=== PATIENT | male | born 1990 | race Two or more races ===

== ENCOUNTER 2023-02-07 09:51 | Emergency (ER) | payer SELFPAY ==
[2023-02-07 09:58] VITALS: BP 122/90; PULSE 80; RESP 18; TEMP 36.9; O2SAT 100; BMI 20.3
--- NOTE | 2023-02-07 10:16 | ED_ITS ---
HPI - Skin/Abscess/Foreign Bdy General Chief complaint: Skin/Abscess/Foreign Body Stated complaint: RASH Time Seen by Provider: 02/07/23 10:16 Source: patient Mode of arrival: walk-in History of Present Illness HPI narrative: patient's here with a skin rash in his groin area. He was here several weeks ago with similar problems. He was not checked for diabetes at the time but has no history of diabetes. He is nystatin cream and the rash went completely away but then it came back when he ran out of the ointment. He is otherwise healthy. 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 He does not have a skin lesions anyplace except in his groin. Related Data Allergies Allergy/AdvReac Type Severity Reaction Status Date / Time No Known Drug Allergies Allergy Verified 02/07/23 09:57 PFSH PFS Social History Smoking status: Current every day smoker Exam Narrative Exam Narrative: pleasant no apparent distress vital signs are stable we will do a bedside glucose. Problem focused examination to his skin shows no skin lesions to his trunk torso or upper extremities or cranial facial area. Examining the area in his groin there is classic erythematous scaling dry ride fungal type infection with no evidence of cellulitis abscesses or complications. His examination is normal. Constitutional Vital Signs - 24 hr 02/07/23 09:58 Temperature 98.5 F Pulse Rate [Monitor] 80 Respiratory Rate 18 Blood Pressure [Left Arm] 122/90 H Pulse Oximetry 100 Oxygen Delivery Method Room Air Course Vital Signs Vital signs: Vital Signs Temperature 98.5 F 02/07/23 09:58 Pulse Rate 80 02/07/23 09:58 Respiratory Rate 18 02/07/23 09:58 Blood Pressure 122/90 H 02/07/23 09:58 Pulse Oximetry 100 02/07/23 09:58 Oxygen Delivery Method Room Air 02/07/23 09:58 Temperature 98.5 F 02/07/23 09:58 Pulse Rate 80 02/07/23 09:58 Respiratory Rate 18 02/07/23 09:58 Blood Pressure 122/90 H 02/07/23 09:58 Pulse Oximetry 100 02/07/23 09:58 Oxygen Delivery Method Room Air 02/07/23 09:58 MDM - Skin/Abscess/Foreign Bdy MDM Narrative Medical decision making narrative: patient's findings are consistent with a fungal infection and a high moist area. 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 We did check his sugar and it was 115. We'll give him a prescription for nystatin Discharge Plan Discharge Chief Complaint: Skin/Abscess/Foreign Body Clinical Impression: Tinea corporis Time of Disposition Decision: 10:24 Instructions: Dermatitis (ED) Additional Instructions: nystatin Stand Alone Forms: Portal Instructions Referrals: Physician,Non-Staff, MD [Primary Care Provider] - 1 week
--- NOTE | 2023-02-07 10:24 | PC.NURSE ---
accuchro completed 115
[2023-02-07 10:25] LABS: Glucometer 115 mg/dL (74-106)
== END 2023-02-07 10:29 | disposition home or self-care (01) ==
PROVIDERS: Emergency Provider Emergency Medicine Emergency Medical Services
DX: B35.4 Tinea corporis (principal); F17.210 Nicotine dependence, cigarettes, uncomplicated
CPT/HCPCS: 36415; 99283

== ENCOUNTER 2024-01-07 18:55 | Emergency (ER) | payer SELFPAY ==
[2024-01-07 19:00] VITALS: BP 141/88; PULSE 80; TEMP 37.1; O2SAT 100; BMI 23.4
--- NOTE | 2024-01-07 19:05 | PC.NURSE ---
Red rash across bridge of nose, area faintly reddened, skin intact. Denies any new lotions, soaps or environmental contact.
--- NOTE | 2024-01-07 19:08 | ED.SKABFB1 ---
HPI - Skin/Abscess/Foreign Bdy General Chief complaint: Skin/Abscess/Foreign Body Stated complaint: RASH ON FACE Time Seen by Provider: 01/07/24 18:56 Source: patient Mode of arrival: walk-in History of Present Illness HPI narrative: Patient is a 33-year-old male who presents to the emergency department for evaluation of a rash on the face, he states it is a similar rash to what he was treated for in this emergency department previously, he was noted to have 2 visits for a ringworm like rash on the body. 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 He has had no raised, vesicular areas, no significant drainage. He denies any significant itching, he states the areas across the nasal bridge are mildly burning. No medications taken prior to arrival. Related Data Previous Rx's ?Medication ?Instructions ?Recorded nystatin 100,000 unit/gram topical 1 applic topical BID #15 grams 01/07/24 cream Allergies Allergy/AdvReac Type Severity Reaction Status Date / Time No Known Drug Allergies Allergy Verified 02/07/23 09:57 Review of Systems ROS Constitutional Denies: fever or chills Respiratory Denies: shortness of breath Gastrointestinal Denies: nausea or vomiting Integumentary/Breast Reports: rash Hematologic/Lymphatic Denies: easy bruising or easy bleeding Allergic/Immunologic Denies: hives PFSH PFS Social History Smoking status: Current every day smoker Exam Narrative Exam Narrative: Gen.: Awake, alert, in no distress Head: Normocephalic, atraumatic ENT: Moist mucous membranes Respiratory: No respiratory distress Extremities: Moves extremities equally Psych: Normal mood and affect Neuro: No focal neuro deficit Skin: Warm, dry, intact; Erythematous, patchy circular rash with raised edges to the nasal bridge. No vesicles or crusting. No extension into the mouth or evidence of impetigo. Constitutional Vital Signs, click to edit/add: Last Vital Signs Temp 98.7 F 01/07/24 19:00 Pulse 80 01/07/24 19:00 Resp 16 01/07/24 19:00 BP 141/88 01/07/24 19:00 Pulse Ox 100 01/07/24 19:00 O2 Del Method Room Air 01/07/24 19:00 Course Vital Signs Vital signs: Vital Signs Temperature 98.7 F 01/07/24 19:00 Pulse Rate 80 01/07/24 19:00 Respiratory Rate 16 01/07/24 19:00 Blood Pressure 141/88 01/07/24 19:00 Pulse Oximetry 100 01/07/24 19:00 Oxygen Delivery Method Room Air 01/07/24 19:00 Temperature 98.7 F 01/07/24 19:00 Pulse Rate 80 01/07/24 19:00 Respiratory Rate 16 01/07/24 19:00 Blood Pressure 141/88 01/07/24 19:00 Pulse Oximetry 100 01/07/24 19:00 Oxygen Delivery Method Room Air 01/07/24 19:00 MDM - Skin/Abscess/Foreign Bdy MDM Narrative Medical decision making narrative: Exam is consistent with a fungal infection of the face, similar to ringworm. Patient was given education and reassurance. Follow-up with PCP and return to the ER if symptoms change or worsen. Medical Records Attestation: I reviewed the patient's medical records. Discharge Plan Discharge Stand Alone Forms: Portal Instructions Chief Complaint: Skin/Abscess/Foreign Body Clinical Impression: Tinea Patient Disposition: Home, Self-Care Time of Disposition Decision: 19:07 Condition: Good Prescriptions / Home Meds: New nystatin 100,000 unit/gram cream 1 applic topical BID Qty: 15 1RF Print Language: Icelandic Instructions: Skin Yeast Infection (ED) Referrals: Physician,Non-Staff, MD [Primary Care Provider] - 1 week
== END 2024-01-07 19:16 | disposition home or self-care (01) ==
PROVIDERS: Emergency Provider Emergency Medicine
DX: B35.9 Dermatophytosis, unspecified (principal)
CPT/HCPCS: 99283